=== PATIENT | female | born 1950 | race Caucasian/White ===

== ENCOUNTER → 2021-03-09 | Outpatient (CLI) | payer OTHER ==
[~2021-03-09] MED LIST: CALCIUM 600 +1 EA14 PO; LEVOTHYROXINE112 MCG PO; MAGNESIUM500 MG PO; MELOXICAM15 MG PO; MULTI VITAMIN1 EACH PO; NEURONTIN 300M300 M2 PO; ST. JOSEPH ASPI81 M1 PO; VITAMIN D31250 MCG PO
[2021-03-09 11:53] LABS: HEMATOCRIT 41.5 % (37.0-47.0); HEMOGLOBIN 13.5 gm/dL (12.0-15.0); MCH 28.8 pg (26.0-34.0); MCHC 32.6 g/dL (28.0-37.0); MCV 88.4 fL (80.0-100.0); RBC 4.7 mil/uL (4.20-5.00); RDW 14.3 % (10.5-14.5); WBC 5.6 thou/uL (4.0-11.0)
[2021-03-09 11:56] LABS: URINE BILIRUBIN NEGATIVE (Negative); URINE BLOOD NEGATIVE (Negative); URINE CLARITY CLEAR; URINE COLOR YELLOW; URINE GLUCOSE-RANDOM* NEGATIVE (Negative); URINE KETONES NEGATIVE (Negative); URINE LEUKOCYTES NEGATIVE (Negative); URINE NITRITE NEGATIVE (Negative); URINE PROTEIN (DIPSTICK) NEGATIVE (Negative); URINE SPECIFIC GRAVITY 1.015 (1.005-1.035); URINE UROBILINOGEN 0.2 E.U./dl (0.2-1.0)
[2021-03-09 12:02] LABS: ALBUMIN 3.9 g/dL (3.4-5.0); CALCIUM 9.5 mg/dL (8.5-10.1); CREATININE 0.7 mg/dL (0.6-1.0); POTASSIUM 4.7 mmol/L (3.5-5.1)
[2021-03-09 12:04] LABS: INR 0.96; PROTIME 10.5 Seconds (10.5-12.1)
== END ==
LOC: PAC 10:41
PROVIDERS: Orthopaedic Surgery; ATTEND Student in an Organized Health Care Education/Training Program
DX: M16.12 Unilateral primary osteoarthritis, left hip (principal)

== ENCOUNTER → 2021-03-18 | Outpatient (CLI) | payer OTHER | LOC: LAB 09:07 | PROVIDERS: ATTEND Student in an Organized Health Care Education/Training Program | DX: Z01.812 Encounter for preprocedural laboratory examination (principal); Z20.822 Contact with and (suspected) exposure to COVID-19 ==

== ENCOUNTER 2021-03-22 06:10 | Observation (INO) | payer OTHER ==
[~2021-03-22] VITALS: Ht 170.2 cm; Wt 79.4 kg
[2021-03-22 06:40] VITALS: BP 128/75
--- NOTE | 2021-03-22 12:10 | O ---
[facility] [place] [address] OPERATIVE REPORT Name: DIANA GRAHAM Room #: 447-P [facility].#: [id number] Admission: 03/22/21 Attend Phys: Brad Lopez MD Discharge: Date of : 54 Report #: [id number] THIS REPORT FOR: cc: Bong Guzman MD, Kirk D. MD Clymer, David J. MD ~ DATE OF SERVICE: 03/22/2021 PREOPERATIVE DIAGNOSIS: Degenerative arthritis, left hip. POSTOPERATIVE DIAGNOSIS: Degenerative arthritis, left hip. PROCEDURE: Left total hip replacement. SURGEON: Brad Lopez MD INDICATIONS: This healthy, fit and generally active 71-year-old female complains of progressive left hip pain. Clinical exam and x-rays confirm moderately severe degenerative arthritis. She has tried conservative measures without much benefit. She has elected to go ahead with total hip replacement. DESCRIPTION OF PROCEDURE: The patient was taken to the operating room where she was placed under general anesthesia. Prophylactic intravenous antibiotics were administered. She was turned to the right lateral decubitus position. The left hip, thigh and leg were meticulously prepped and draped. A slightly curving posterolateral skin incision was made. This was carried through adipose tissues and fascia to expose the posterior aspect of the hip joint. The short external rotators and caps were taken down and preserved and tagged with several #1 FiberWire sutures. The hip was dislocated posteriorly. Moderately severe degenerative change on both the femoral head and acetabulum was noted. A femoral neck osteotomy was performed. The canal was prepared using the Rutledge [employer]hew reamer and broach system. A size 14 femoral stem seemed to fit most appropriately. The calcar was trimmed down to an appropriate level. Attention was then directed to the acetabulum, which was sequentially reamed, gradually advancing to a 52 mm reamer. There appeared to be good bone stock and satisfactory fit. A Rutledge [employer] Nephew 52 mm diameter, 3-hole StikTite shell was then selected. This was impacted into the acetabulum in alignment with her true acetabulum, which placed this at about 40 degrees off of vertical and about 20 degrees of anteversion. There appeared to be adequate coverage around the margin of the component. It seemed to be secure. Three screws were then placed through the apical holes engaging good periacetabular bone adding nicely to stability. A 36 mm polyethylene liner was then inserted placing the 20-degree elevated rim at about the 10 o'clock posterior position. This was snapped into place. It seated nicely and appeared to be secure. The permanent Rutledge and Nephew size 14 Synergy stem was selected. This was impacted into the canal, placing this in about 20 degrees of anteversion. A standard offset neck angle [address] [address] OPERATIVE REPORT Name: DIANA GRAHAM Room #: 447-P REG [facility] M.R.#: [id number] Admission: 03/22/21 Attend Phys: Brad Lopez MD Discharge: Date of : 54 Report #: [id number] was selected. A trial reduction was performed and the hip seemed best suited for a +4 mm neck length. A 36 mm cobalt chrome head with a +4 mm neck length was selected. This was impacted on the Moctezuma taper neck. The hip was then reduced. Alignment, range of motion, stability, and leg length were assessed and felt to be satisfactory. The wound was copiously irrigated. There was moderate oozing throughout the procedure, and 2 grams of TXA were administered during the procedure, which seemed to help with oozing. Total blood loss throughout the procedure was about 500 mL. The wound demonstrated good hemostasis at this point. The short external rotators and capsule were then repaired back to bone using #1 FiberWire sutures passed through small drill holes in greater trochanter. A Hemovac was left in the wound exiting through a separate stab incision. The fascia was then closed with multiple #1 Vicryl sutures. The adipose tissues and subcutaneous tissues were closed with 0 Monocryl. The skin was closed with skin giana. A sterile dressing was applied. The patient was then awakened and returned to recovery room in good condition. <ELECTRONICALLY SIGNED> By: Brad Lopez MD 03/22/21 1210 [id number] Brad Lopez MD /nt
[2021-03-22 15:52] VITALS: BP 97/55
--- NOTE | 2021-03-22 17:44 | NUR ---
ASSUMED CARE OF PT AROUND 1200 AFTER SURGERY. PT CO OF SOME NAUSEA AND PAIN - GIVEN ZOFRAN AND PAIN MEDICATION. PT WAS ABLE TO GET OUT OF BED AND USE THE BEDSIDE COMMODE. ALL VITAL SIGNS WNL. PT APPETITE IS IMPROVING - GIVEN JELLO AND ATE 1/4 OF DINNER TRAY.
[2021-03-22 19:16] VITALS: BP 107/51
[2021-03-23 05:52] LABS: HEMATOCRIT 27.2 % (37.0-47.0); MCH 29.4 pg (26.0-34.0); MCHC 32.9 g/dL (28.0-37.0); MCV 89.2 fL (80.0-100.0); RBC 3.06 mil/uL (4.20-5.00); RDW 14.5 % (10.5-14.5); WBC 9.2 thou/uL (4.0-11.0)
--- NOTE | 2021-03-23 06:17 | NUR ---
Pt. rested quietly at intervals during the night when checked on during frequent rounds. Po pain meds given (see emar) for c/o left hip pain with relief noted. Dressing to left hip is dry and intact. Assisted up to the bedside comode and patient voided. Bed alarm is on.
[2021-03-23 08:51] VITALS: BP 101/49
--- NOTE | 2021-03-23 11:36 | NUR ---
Met with patient who is post-op day 1 of hip replacement. [facility] [place] with spouse. All needs on one level. patient independent with adls. she has a walker at home if needed. 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 Her spouse works 3 days a week. he is obtaining bedside commode. She has rec home health in past but cannot recall agency. She has been doing outpatient therapy currently at [facility] to prepare for sx. PCP Dr Guzman. Patient agreeable to home health care any agency that services area.
[2021-03-23 13:34] VITALS: BP 101/49
[2021-03-23 16:55] VITALS: BP 109/59
[2021-03-23 19:24] VITALS: BP 119/48
--- NOTE | 2021-03-24 03:57 | NUR ---
Pt. rested quietly during the night when checked on during frequent rounds. She ambulated to the bathroom with assistance of one,gait belt and walker and did well. Dressing to left hip is dry and intact. Bed alarm is on.
[2021-03-24 06:52] LABS: HEMATOCRIT 25.3 % (37.0-47.0); HEMOGLOBIN 8.6 gm/dL (12.0-15.0); MCH 30.3 pg (26.0-34.0); MCHC 33.9 g/dL (28.0-37.0); MCV 89.4 fL (80.0-100.0); RBC 2.83 mil/uL (4.20-5.00); RDW 14.2 % (10.5-14.5); WBC 7.7 thou/uL (4.0-11.0)
[2021-03-24 08:10] VITALS: BP 120/46
--- NOTE | 2021-03-24 10:02 | NUR ---
ASSUMED CARE OF PT AT 0700 THIS MORNING. PT IS A/OX4 WITH LT HIP TTL REPLACEMENT. PT C/O NO PAIN WHILE SITTING STILL. ASSESSMENTS NOTED IN CHART AND OTHERWISE UNREMARKABLE. FALL PRECAUTIONS ARE IN PLACE. PHYS THPY WILL BE EVALUATING AND CLEARING PT TO GO HOME. CALL LIGHT AND OTHER NEEDS ARE IN REACH.MEDS AND TX GIVEN NEEDED AND SCHEDULED. WILL MONITOR AND NOTE ANY CHANGES.
--- NOTE | 2021-03-24 16:24 | NUR ---
Patient feels home health not needed. Plan dc home independently.
--- NOTE | 2021-03-25 07:35 | D ---
[facility] [place] [address] DISCHARGE SUMMARY Name: DIANA GRAHAM Room #: 447-P [facility] Carmela MFunmi#: [id number] Admission: 03/22/21 Attend Phys: Brad Lopez MD Discharge: 03/24/21 Date of : 54 Report #: [id number] THIS REPORT FOR: cc: Bong Guzman MD, Kirk D. MD Clymer, David J. MD ~ DATE OF SERVICE: 03/24/2021 FINAL DIAGNOSIS: End-stage degenerative arthritis, left hip. OPERATION PROCEDURE: Left total hip arthroplasty. HOSPITAL COURSE: This 71-year-old active, independent female complains of progressive left hip pain. Clinical and radiographic findings confirm rather severe degenerative arthritis involving the left hip. She has tried conservative measures without benefit and has difficulty remaining active and functional and independent. She has elected to go ahead with left total hip replacement. HOSPITAL COURSE: The patient was admitted and taken to the operating room on 03/22. She underwent left total hip replacement, which she tolerated nicely. Postoperatively, she was able to advance to regular diet and move from IV pain medication to oral pain medication. She was able to start ambulation with a walker for balance and with physical therapy assistance. She has made good progress and now seems safe and stable. She feels she is ready for hospital discharge and plans family assistance at home over the coming week and then outpatient therapy. DISCHARGE MEDICATIONS: Include Synthroid 112 mcg daily, gabapentin 300 mg at bedtime p.r.n., vitamin D 1250 mcg daily, magnesium oxide 500 mg daily, Xarelto 10 mg daily, hydrocodone 10 mg q. 6 hours as needed for pain. She will continue a regular diet at home and will continue walker for protection and gradually advancing activity with family assistance. I will plan to see her back in my office in 1 week for followup and in 2 weeks for suture removal. She plans to begin outpatient physical therapy next week. <ELECTRONICALLY SIGNED> By: Brad Lopez MD 03/25/21 0735 [id number] Brad Lopez MD /nt
== END 2021-03-24 16:48 | disposition home or self-care (01) ==
LOC: OR → 4S 06:10 → OR 09:10 → 4S 11:16 → OR 11:17 → 4S 03-24 16:48
PROVIDERS: ADMIT Orthopaedic Surgery; ATTEND Orthopaedic Surgery
DX: M16.12 Unilateral primary osteoarthritis, left hip (principal); E03.9 Hypothyroidism, unspecified; Z98.890 Other specified postprocedural states
CPT/HCPCS: 10102; 50010; 50101; 50382; 50414; 51412; 53000; 53367; 56521; 56525; 56530; 57095; 57103; 62110; 62900; 70005